=== PATIENT | female | born 1985 | race Caucasian/White ===

== ENCOUNTER → 2019-11-07 | Outpatient (CLI) | payer OTHER ==
--- NOTE | 2019-11-07 09:30 | Diagnostic Imaging Report ---
PROCEDURE: CT sinuses without contrast TECHNIQUE: Multiple contiguous axial images were obtained through the sinuses without the use of intravenous contrast. Coronal and sagittal reformations were then performed. Auto Exposure Controls were utilized during the CT exam to meet ALARA standards for radiation dose reduction. INDICATION: Recurring sinusitis. FINDINGS: Frontal sinuses are clear. There is opacification of some left ethmoid air cells. There is also complete opacification of the left maxillary sinus. There is abnormal soft tissue in region of left ostiomeatal complex. There is a small mucous retention cyst or polyp in the right maxillary sinus. Sphenoid sinus is clear. There are no jesu bullosa. There is mild tortuosity of the nasal septum. Mastoid air cells are clear. The nasopharyngeal soft tissues are symmetric and without mass effect. The parotid glands are grossly normal in appearance. The globes and intraorbital structures are unremarkable. The visualized intracranial structures are unremarkable. IMPRESSION: Moderate sinus disease particularly on the left as detailed above. Mild tortuosity of the nasal septum. Dictated by: Dictated on workstation # [id number]
== END ==
LOC: RAD FS 09:03
PROVIDERS: ATTEND Nurse Practitioner Family
DX: J01.11 Acute recurrent frontal sinusitis (principal)
CPT/HCPCS: 70486

== ENCOUNTER → 2019-11-29 | Outpatient (CLI) | payer OTHER ==
--- NOTE | 2019-11-29 09:27 | Diagnostic Imaging Report ---
PROCEDURE: CT sinuses without contrast TECHNIQUE: Multiple contiguous axial images were obtained through the sinuses without the use of intravenous contrast. Coronal and sagittal reformations were then performed. Auto Exposure Controls were utilized during the CT exam to meet ALARA standards for radiation dose reduction. INDICATION: Sinusitis. FINDINGS: The recent CT sinus exam of 11/07/2019 noted mucosal thickening of the left maxillary and left ethmoid sinuses. On this study, the mucosa of the left ethmoid sinus remains thickened. However, the left maxillary antrum does seem much better aerated. There is still some residual mucosal thickening and fluid within the left maxillary antrum and the left ostiomeatal complex remains occluded. The small retention cyst in the right maxillary antrum seen previously is again evident and not significantly changed. The sinuses are otherwise generally clear. The orbits are symmetrical and within normal limits. The intracranial contents where visualized are unremarkable. IMPRESSION: 1. The appearance of the sinuses has improved since the prior exam as the left maxillary antrum does seem much better aerated. There is still some residual mucosal thickening and fluid involving the left maxillary antrum however and the ostiomeatal complex on the left remains occluded. 2. No new abnormality has developed, otherwise. Dictated by: Dictated on workstation # [id number]
== END ==
LOC: RAD FS 07:59
PROVIDERS: ATTEND Otolaryngology Otolaryngology/Facial Plastic Surgery
DX: J32.9 Chronic sinusitis, unspecified (principal)
CPT/HCPCS: 70486

== ENCOUNTER → 2020-02-06 | Outpatient (CLI) | payer OTHER ==
[~2020-02-06] VITALS: Ht 167.7 cm; Wt 86.4 kg
[~2020-02-06] MED LIST: CETI10TA21 PO; FAMO-119 PO; HYDR200T78 PO
== END ==
LOC: PREOP 05:36
PROVIDERS: ATTEND Otolaryngology Otolaryngology/Facial Plastic Surgery
DX: Z01.818 Encounter for other preprocedural examination (principal)

== ENCOUNTER 2020-02-14 06:28 | Day surgery (SDC) | payer OTHER ==
[2020-02-14] VITALS (9 sets, daily range): BP systolic 117–155; BP diastolic 81–95
[~2020-02-14] VITALS: Ht 167 cm; Wt 86.4 kg
--- OUTSIDE RECORDS SUMMARY | 2020-02-14 06:33 | XMS REPORT | Continuity of Care Document ---
Author Organization Unknown Address Unknown Phone Unavailable Allergies Active Description Code Type Severity Reaction Onset Reported/Identified Relationship to Patient Clinical Status Yes No Known Drug Allergies [id number] Drug Allergy Unknown N/A 02/06/2020 Medications There is no data. Problems Date Dx Coded Attending Type Code Diagnosis Diagnosed By 08/25/1500 JUANCARLOS FOWLER MD Ot Z01.818 ENCOUNTER FOR OTHER PREPROCEDURAL EXAMIN 08/25/1500 JUANCARLOS FOWLER MD Ot Z11.59 ENCOUNTER FOR SCREENING FOR OTHER VIRAL 11/08/2019 Ot J01.11 ACU TE RECURRENT FRONTAL SINUSITIS 11/30/2019 JUANCARLOS FOWLER MD Ot J32 .9 CHRONIC SINUSITIS, UNSPECIFIED 12/25/2019 JUANCARLOS FOWLER MD Ot J32 .9 CHRONIC SINUSITIS, UNSPECIFIED 02/05/2020 Ot J01.11 ACU TE RECURRENT FRONTAL SINUSITIS 02/05/2020 JUANCARLOS FOWLER MD Ot J32 .9 CHRONIC SINUSITIS, UNSPECIFIED 02/06/2020 Ot J01.11 ACU TE RECURRENT FRONTAL SINUSITIS 02/06/2020 JUANCARLOS FOWLER MD Ot J32 .9 CHRONIC SINUSITIS, UNSPECIFIED 02/07/2020 JUANCARLOS FOWLER MD Ot Z01.818 ENCOUNTER FOR OTHER PREPROCEDURAL EXAMIN 02/11/2020 JUANCARLOS FOWLER MD Ot Z01.818 ENCOUNTER FOR OTHER PREPROCEDURAL EXAMIN Procedures There is no data. Results Test Result Range Coronavirus SARS-CoV-2 SO 2018 - 0 13:15 Coronavirus Ab [Units/volume] in Serum Negative Negative Encounters ACCT No. Visit Date/Time Discharge Status Pt. Type Provider Facility Loc./Unit Complaint [id number] 11/01/2019 12:40:00 11/01/2019 23:59: 59 [facility] [id number] 02/11/2020 09:42:00 020 15:01:00 DIS Outpatient JUANCARLOS FOWLER MD [facility] PREOP DEVIATED SEPTUM, TURBIN ATE HYPERTROPHY [id number] 11/29/2019 07:59:00 020 23:59:59 CLS Outpatient MALCOLM KUNZ, JUANCARLOS Hernandes [facility] RAD FS J32.9 [id number] 02/14/2020 08:30:00 P EN Preadmit MALCOLM KUNZ, JUANCARLOS Hernandes [facility] SDC DEVIATED SEPTUM, TURBINATE H YPERTROPHY [id number] 11/07/2019 09:03:00 Document Registration
[2020-02-14] MEDS ORDERED: BSS 15 ML ONE (06:41)
[2020-02-14] MEDS ORDERED: LIDOCAINE/EPI 1%-1:100,000 (XYLOCAINE) 20ML ONE (06:41)
[2020-02-14] MEDS ORDERED: COCAINE HCL 4% 2 ML SYR ONE (06:41)
[2020-02-14] MEDS ORDERED: PHENYLEPHRINE 0.5% NASAL SPR (NEO-SYNEPHRINE) REG ONE (06:41)
--- NOTE | 2020-02-14 06:59 | Progress Note-Pre Operative ---
Pre-Operative Progress Note H&P Reviewed The H&P was reviewed, patient examined and no changes noted. Date Seen by Provider: February 14, 2020 Time Seen by Provider: 07:00 Date H&P Reviewed: February 14, 2020 Time H&P Reviewed: 07:00 Pre-Operative Diagnosis: Bilat Chronci Sinusitis, Deviated SEptum ,bilat HYper of Inf Turbs JUANCARLOS FOWLER MD February 14, 2020 06:59
[2020-02-14 07:07] LABS: BASOPHILS % (AUTO) 0 % (0-10); EOSINOPHILS # (AUTO) 0.4 10^3/uL (0.0-0.3); EOSINOPHILS % (AUTO) 3 % (0-10); HEMATOCRIT 39 % (35-52); HEMOGLOBIN 12.8 G/DL (11.5-16.0); LYMPHOCYTES # (AUTO) 4.8 X 10^3 (1.0-4.0); LYMPHOCYTES % (AUTO) 41 % (12-44); MEAN CORPUSCULAR HEMOGLOBIN 30 PG (25-34); MEAN CORPUSCULAR HGB CONC 33 G/DL (32-36); MEAN CORPUSCULAR VOLUME 91 FL (80-99); MEAN PLATELET VOLUME 9.8 FL (7.4-10.4); MONOCYTES # (AUTO) 0.9 X 10^3 (0.0-1.0); MONOCYTES % (AUTO) 8 % (0-12); NEUTROPHILS # (AUTO) 5.7 X 10^3 (1.8-7.8); NEUTROPHILS % (AUTO) 48 % (42-75); PLATELET COUNT 278 10^3/uL (130-400); RED CELL DISTRIBUTION WIDTH 13.1 % (10.0-14.5); WHITE BLOOD COUNT 11.7 10^3/uL (4.3-11.0)
[2020-02-14 07:22] LABS: BUN/CREATININE RATIO 12; CALCIUM 8.6 MG/DL (8.5-10.1); CARBON DIOXIDE 24 MMOL/L (21-32); CHLORIDE 106 MMOL/L (98-107); CREATININE SERUM 0.78 MG/DL (0.60-1.30); GFR ESTIMATED > 60; GLUCOSE 79 MG/DL (70-105); POTASSIUM 3.3 MMOL/L (3.6-5.0); SODIUM 141 MMOL/L (135-145)
[2020-02-14] MEDS ORDERED: fentaNYL INJECTION 100 MCG/2 ML AMP ONE (07:33)
[2020-02-14] MEDS ORDERED: MIDAZOLAM 2 MG/2 ML (VERSED) VIAL ONE (07:34)
[2020-02-14] MEDS ORDERED: LACTATED RINGERS 1,000 ML IV PRN (07:37)
[2020-02-14] MEDS ORDERED: HYDROCORTISONE 100 MG/2 ML (Solu-CORTEF) VIAL IV ONE (07:45)
[2020-02-14] MEDS ORDERED: CATHETER FLUSH 10 ML SYR IV PRN (07:45)
[2020-02-14] MEDS ORDERED: AMPICILLIN/SULBACTAM INJECTION 1.5 GM in NS (IVPB) 100 ML IV ONE (07:45)
[2020-02-14] MEDS ORDERED: LIDOCAINE PF 2% 5 ML (XYLOCAINE) VIAL ONE (09:05)
[2020-02-14] MEDS ORDERED: ONDANSETRON 4 MG/2 ML (SDV) Z0FRAN ONE (09:05)
[2020-02-14] MEDS ORDERED: ROCURONIUM 10 MG/ML 5 ML SYRINGE IV ONE (09:05)
[2020-02-14] MEDS ORDERED: proPOfol 200 MG/20 ML (DIPRIVAN) VIAL IV ONE (09:05)
[2020-02-14] MEDS ORDERED: SEVOFLURANE (ULTANE) 15 ML INHAL SOLN ONE ×5 (09:05→09:07)
[2020-02-14] MEDS ORDERED: NEOSTIGMINE 3 MG/3 ML VIAL ONE (09:07)
[2020-02-14] MEDS ORDERED: GLYCOPYRROLATE 0.2 MG/ML (ROBINUL) 2 ML VIAL ONE (09:07)
[2020-02-14] MEDS ORDERED: D5 1/2 NS W/KCL 20 MEQ/L 1,000 ML IV SCH (09:17)
--- NOTE | 2020-02-14 09:17 | Progress Note-Post Operative ---
Post-Operative Progess Note Surgeon (s)/Lime Burner (s) Surgeon JUANCARLOS FOWLER MD Lime Burner n/a Pre-Operative Diagnosis Bilat Chronci Sinusitis, Deviated SEptum ,bilat HYper of Inf Turbs Post-Operative Diagnosis same Post-Op Procedure Note Date of Procedure: February 14, 2020 Name of Procedure Performed: Bilat ESS, Nasal Septoplasty, Bilat Red of Inf Turbs Description & Findings Description and Findings: n/a Anesthesia Type get Estimated Blood Loss minimal Packing none. Specimen(s) collected/removed bilat chronic sinus disease JUANCARLOS FOWLER MD February 14, 2020 09:17
[2020-02-14] MEDS ORDERED: ACETAMINOPHEN 325 MG TABLET PO PRN (09:30)
[2020-02-14] MEDS ORDERED: predniSONE 20 MG TAB PO ONE (09:30)
[2020-02-14] MEDS ORDERED: PROMETHAZINE INJ 25 MG/ML (PHENERGAN) AMP IVP PRN (09:30)
[2020-02-14] MEDS ORDERED: HYDROcodone/APAP 5 MG/325 MG (LORTAB) TAB PO PRN (09:30)
[2020-02-14] MEDS ORDERED: AMOX-355 PO ×2 (09:39→09:47)
[2020-02-14] MEDS ORDERED: PRD20T PO (09:45)
[2020-02-14] MEDS ORDERED: morphine INJ 10 MG/ML 1ML (SYR OR VIAL) ONE (09:45)
[2020-02-14] MEDS ORDERED: HYDR-83 PO (09:48)
--- NOTE | 2020-02-14 09:48 | Anesthesia-General Post-Op ---
General Patient Condition Mental Status/LOC: Same as Preop Cardiovascular: Satisfactory Nausea/Vomiting: Absent Respiratory: Satisfactory Pain: Controlled Complications: Absent Post Op Complications Complications None Follow Up Care/Instructions Patient Instructions None needed. Anesthesia/Patient Condition Patient Condition Patient is doing well, no complaints, stable vital signs, no apparent adverse anesthesia problems. No complications reported per nursing. MISSY JOSHI CRNA February 14, 2020 09:47
[2020-02-14] MEDS ORDERED: ONDANSETRON 4 MG/2 ML (SDV) Z0FRAN IVP PRN (10:00)
[2020-02-14] MEDS ORDERED: morphine INJ 10 MG/ML 1ML (SYR OR VIAL) IVP ONE (10:00)
== END 2020-02-14 12:00 | disposition home or self-care (01) ==
LOC: SDC 06:28
PROVIDERS: ATTEND Otolaryngology Otolaryngology/Facial Plastic Surgery
DX: J32.4 Chronic pansinusitis (principal); J34.2 Deviated nasal septum; J34.3 Hypertrophy of nasal turbinates; J34.89 Other specified disorders of nose and nasal sinuses; J30.9 Allergic rhinitis, unspecified; R09.81 Nasal congestion; Z79.899 Other long term (current) drug therapy
CPT/HCPCS: 36415; 80048; 84703; 85025; 87081